=== PATIENT | male | born 1930 | race Caucasian/White ===

== ENCOUNTER 2019-08-05 17:30 | Inpatient (IN) | payer MEDICARE, MEDICAID ==
[~2019-08-05] VITALS: Ht 162.6 cm; Wt 56.8 kg
[~2019-08-05 17:30] MED LIST: AMLO10TA4 PO; BUSP5TAB3 PO; CARB-32 PO; OMEP20TA2 PO
[2019-08-05] MEDS ORDERED: ONDANSETRON HCL 4MG/2ML INJ IV STA (17:55)
[2019-08-05] MEDS ORDERED: MORPHINE SULFATE 4 MG/ML CPJ (NOT FOR IM USE) IV STA (17:55)
[2019-08-05 18:53] LABS: BASOPHILS % 0.9 % (0.0-2.0); EOSINOPHILS % 1.6 % (0.0-5.0); HEMATOCRIT. 30.6 % (42.0-52.0); HEMOGLOBIN. 9.8 g/dL (14.0-18.0); LYMPHOCYTES % 12.8 % (20.0-50.0); MEAN CORPUSCULAR HEMOGLOBIN 25.2 pg (28.0-32.0); MEAN CORPUSCULAR VOLUME 78.4 fL (80.0-94.0); MEAN PLATELET VOLUME 7.3 fl (7.4-10.4); MONOCYTES % 9.9 % (2.0-8.0); NEUTROPHILS % 74.8 % (40.0-76.0); PLATELET 221 x1000/uL (130-400); RED CELL DISTRIBUTION WIDTH 18.7 % (11.6-14.6)
[2019-08-05 18:58] LABS: PARTIAL THROMBOPLASTIN TIME 26.5 sec (23.4-31.0); PROTHROMBIN TIME 10.3 sec (9.6-11.0)
[2019-08-05 19:16] LABS: CHLORIDE 112 mEq/L (98-107)
[2019-08-05 21:06] LABS: CLARITY URINE CLEAR (CLEAR); COLOR URINE YELLOW (YELLOW); KETONES URINE NEGATIVE (NEGATIVE); LEUKOCYTE ESTERASE URINE NEGATIVE (NEGATIVE); NITRITE URINE NEGATIVE (NEGATIVE); OCCULT BLOOD URINE NEGATIVE (NEGATIVE); PROTEIN URINE TRACE (NEGATIVE); SPECIFIC GRAVITY URINE 1.013 (1.005-1.030); UROBILINOGEN URINE 0.2 E.U./dL (0.2-1.0)
[2019-08-05 23:40] VITALS: BP 150/69
[2019-08-06 04:00] VITALS: BP 121/55
[2019-08-06] MEDS ORDERED: ONDANSETRON HCL 4MG/2ML INJ IV PRN (04:00)
[2019-08-06] MEDS ORDERED: CLONIDINE 0.1MG TABLET PO PRN (04:00)
[2019-08-06] MEDS ORDERED: HYDROCODONE/ACETAMINOPHEN 5/325MG TABLET PO PRN (04:00)
[2019-08-06] MEDS ORDERED: CARB1TAB9 MT (07:46)
[2019-08-06 08:00] VITALS: BP 155/65
[2019-08-06] MEDS ORDERED: [UNRECOGNIZED DRUG - OTHER] PO SCH (09:00)
[2019-08-06] MEDS ORDERED: MEDICATION NOT ON FORMULARY EA (Omeprazole 20 MG) PO SCH (09:00)
[2019-08-06] MEDS ORDERED: LEVODOPA PO SCH (09:00)
[2019-08-06] MEDS ORDERED: ENOXAPARIN 40MG/0.4ML SYR SUBCUT SCH (09:00)
[2019-08-06] MEDS ORDERED: CARBIDOPA PO SCH (09:00)
[2019-08-06] MEDS: AMLODIPINE 10MG TABLET PO SCH (10:59)
[2019-08-06] MEDS: ENOXAPARIN 30MG/0.3ML SYR SUBCUT SCH (10:59)
[2019-08-06] MEDS: OMEPRAZOLE 20MG CAPSULE EXTENDED RELEASE PO SCH (11:00)
[2019-08-06 12:00] VITALS: BP 144/58
[2019-08-06] MEDS: CARBIDOPA/LEVODOPA 25/100MG TABLET PO SCH ×2 (14:00→21:15)
[2019-08-06 16:00] VITALS: BP 141/71
[2019-08-06] MEDS ORDERED: SODIUM CHLORIDE 0.45% 1,000 ML IV SCH (17:15)
[2019-08-06] MEDS ORDERED: ACETAMINOPHEN 325MG TABLET PO PRN (17:15)
[2019-08-06] MEDS ORDERED: LACTULOSE 20G/30ML UDC PO PRN (17:15)
[2019-08-06] MEDS ORDERED: DIPHENHYDRAMINE 50MG/ML VIAL IV PRN (17:15)
[2019-08-06] MEDS ORDERED: LORAZEPAM 2MG/ML CPJ IV PRN (17:15)
[2019-08-06] MEDS ORDERED: IPRATROPIUM/ALBUTEROL 0.5-3(2.5)MG/3ML NEB HHN PRN (17:15)
[2019-08-06] MEDS ORDERED: ACETAMINOPHEN 650MG SUPP PR PRN (17:15)
[2019-08-06 20:00] VITALS: BP 140/68
[2019-08-06 23:58] VITALS: BP 122/64
[2019-08-07 04:00] VITALS: BP 117/59
[2019-08-07] MEDS: CARBIDOPA/LEVODOPA 25/100MG TABLET PO SCH ×2 (05:41→13:14)
[2019-08-07] MEDS: OMEPRAZOLE 20MG CAPSULE EXTENDED RELEASE PO SCH (06:21)
[2019-08-07 07:12] LABS: BASOPHILS % 1.3 % (0.0-2.0); HEMATOCRIT. 31.2 % (42.0-52.0); HEMOGLOBIN. 10.2 g/dL (14.0-18.0); LYMPHOCYTES % 19.6 % (20.0-50.0); MEAN CORPUSCULAR HEMOGLOBIN 25.6 pg (28.0-32.0); MEAN CORPUSCULAR VOLUME 78.4 fL (80.0-94.0); MEAN PLATELET VOLUME 7.6 fl (7.4-10.4); MONOCYTES % 10.2 % (2.0-8.0); NEUTROPHILS % 61.9 % (40.0-76.0); PLATELET 215 x1000/uL (130-400); RED BLOOD CELL COUNT 3.98 mill/uL (4.7-6.1); RED CELL DISTRIBUTION WIDTH 18.1 % (11.6-14.6)
[2019-08-07 08:45] VITALS: BP 139/61
[2019-08-07] MEDS: AMLODIPINE 10MG TABLET PO SCH (09:21)
[2019-08-07] MEDS: ENOXAPARIN 30MG/0.3ML SYR SUBCUT SCH (09:21)
[2019-08-07 12:00] VITALS: BP 133/54
[2019-08-07] MEDS ORDERED: HYDR-4001 MT (12:06)
[2019-08-07 13:32] VITALS: BP 133/54
== END 2019-08-07 14:24 | disposition home or self-care (01) | DRG 392 ==
LOC: ER 17:30 → 6WST 21:03 → EDBEDREQ 21:06 → EDBEDREQTM 21:06 → ENRESERV 21:21
PROVIDERS: ADMIT Internal Medicine; ATTEND Internal Medicine
DX: K44.9 Diaphragmatic hernia without obstruction or gangrene (principal); R07.89 Other chest pain; D64.9 Anemia, unspecified; E86.0 Dehydration; G20 Parkinson's disease; N18.9 Chronic kidney disease, unspecified; I12.9 Hypertensive chronic kidney disease with stage 1 through stage 4 chronic kidney disease, or unspecified chronic kidney disease; K21.9 Gastro-esophageal reflux disease without esophagitis; R00.1 Bradycardia, unspecified; Z79.899 Other long term (current) drug therapy
CPT/HCPCS: 36415; 71045; 80048; 80061; 81003; 83880; 84484; 85379; 93005; 93306; 96374; 96375; 97162; 99285; J1650; J2270; J2405